=== PATIENT | female | born 1980 | race Caucasian/White ===

== ENCOUNTER 2016-08-15 04:30 | Emergency (ER) | payer SELFPAY ==
[~2016-08-15 04:30] MED LIST: FERR27TA PO; PREN1TAB49 PO
== END 2016-08-15 04:53 | disposition left against medical advice (07) ==
LOC: FTE 04:30 → E/R 04:53
DX: Z53.21 Procedure and treatment not carried out due to patient leaving prior to being seen by health care provider (principal)

== ENCOUNTER 2016-08-15 04:53 | Outpatient (CLI) | payer MEDICAID ==
[~2016-08-15] VITALS: Ht 152.4 cm; Wt 72.2 kg
[2016-08-15 05:10] VITALS: Ht 152.4 cm; Wt 72.2 kg
[2016-08-15 05:13] VITALS: BP 121/74; PULSE 94; RESP 16
--- NOTE | 2016-08-15 06:22 | CONS ---
Date/Time of Note Date/Time of Note DATE: 08/15/16 TIME: 06:20 Assessment/Plan Assessment/Plan Additional Assessment/Plan URI with cough. Discussed OTC meds to take. Discharge home. F/u with OB. Consultation Date/Type/Reason Admit Date/Time Hx of Present Illness 35 y/o at 34.6 weeks with cough and pain in upper abdomen. Pain is exacerbated by cough. Denies f/c/n/v. Has not tried OTC meds for cough. Denies LOF, VB, UCs, cramping, dysuria. +FM. Getting PNC, no complications. Past Medical History Medical History: no pertinent history Past Surgical History Past Surgical Hx: no surgical history Social History Smoking Status: Never smoker Other Social History Denies habits. Exam/Review of Systems Vital Signs Vitals Vital Signs Date Time Temp Pulse Resp B/P Pulse Ox O2 Delivery O2 Flow Rate FiO2 08/15/16 05:13 97.8 94 16 121/74 Exam Gen: NAD HEENT: NCAT CV: RRR Pulm: CTAB Abd: gravid, NT Back: no CVAT Ext: NT FHT: reactive [place]: no UCs SIDRA BLUNT Aug 15, 2016 06:22
--- NOTE | 2016-08-15 06:32 | TRIAGE ---
OB Triage Datetime Report Generated by CPN: 08/15/2016 06:32 Datetime: 08/15/2016 06:08 Labor Evaluation Frequency: NONE Pattern: Normal: <= 5 Contractions in 10 Minutes Resting Tone Peak: Relaxed Interventions: Side to Side Heart Rate FHR Baseline Rate: 140 Monitor Mode: External US FHR Baseline Changes: No Baseline Change Variability: Moderate 6-25 bpm Accelerations: 15X15 Decelerations: None Category: Category I Datetime: 08/15/2016 05:39 Vaginal Exam Membrane Status: Intact Datetime: 08/15/2016 05:38 Labor Evaluation Frequency: NONE Monitor Mode: External Pattern: Normal: <= 5 Contractions in 10 Minutes Resting Tone Peak: Relaxed Heart Rate FHR Baseline Rate: 145 Monitor Mode: External US FHR Baseline Changes: No Baseline Change Variability: Moderate 6-25 bpm Accelerations: 15X15 Decelerations: None Category: Category I Datetime: 08/15/2016 05:06 Stage of : OB Triage Assessment Type: Triage Maternal Assessment Level of Consciousness: Fully Conscious DTR's/Clonus: DTRs 2+; No Clonus Headache: Denies Blurred Vision: No Respiratory Effort: Unlabored; Regular Rhythm; Equal Expansion Breath Sounds, Left: Clear and Equal Breath Sounds, Right: Clear and Equal Nausea/Vomiting: Denies RUQ Epigastric Pain: Denies Facial Edema: None Temperature Route: Axillary Fall Risk Assessment History of Falling: (0) No Secondary Diagnosis: (0) No Ambulatory Aid: (0) Bedrest/Nurse Assist IV Therapy: (0) No Gait: (0) Normal/Bedrest/Immobile Mental Status: (0) Oriented to Own Ability Fall Score: 0 Fall Risk Score Definition: No Risk: No action required Datetime: 08/15/2016 05:05 Time of Arrival: 08/15/2016 04:48 EGA: 34.6 Arrived By: Ambulatory Arrived From: Home Chief Complaint: COUGH Movement: Present Contractions: Denies/Absent Rupture of Membranes: Denies Vaginal Bleeding: None Vaginal Discharge: Denies Recent Sexual Intercouse: Denies Abdominal Trauma: Not Applicable Patient Complaints: None Time Provider Notified: 08/15/2016 05:55 Provider Notified: YES Initial Plan: EFM. Datetime: 08/15/2016 05:01 Labor Evaluation Frequency: NONE Pattern: Normal: <= 5 Contractions in 10 Minutes Resting Tone Peak: Relaxed Heart Rate FHR Baseline Rate: 145 Monitor Mode: External US
== END 2016-08-15 06:23 | disposition home or self-care (01) ==
LOC: OBT 04:53 → L-D 04:54 → OBT 06:23
PROVIDERS: ATTEND Obstetrics & Gynecology
DX: O26.893 Other specified pregnancy related conditions, third trimester (principal); O09.523 Supervision of elderly multigravida, third trimester; J06.9 Acute upper respiratory infection, unspecified; R05 Cough; Z3A.34 34 weeks gestation of pregnancy

== ENCOUNTER 2016-09-13 14:58 | Inpatient (IN) | payer MEDICAID ==
[~2016-09-13] VITALS: Ht 152.4 cm; Wt 73.5 kg
[2016-09-13] MEDS: LACTATED RINGER'S 1,000 ML IV SCH ×3 (15:24→21:35)
[2016-09-13] MEDS ORDERED: OXYTOCIN 30 UNITS/LR 500 ML IV SCH (15:30)
[2016-09-13] MEDS ORDERED: MISOPROSTOL 200 MCG TAB PR PRN ×2 (15:30→22:00)
[2016-09-13] MEDS ORDERED: CARBOPROST 250 MCG INJ IM PRN ×2 (15:30→22:00)
[2016-09-13] MEDS ORDERED: CEFAZOLIN 2 GM/50 ML (PMX) 50 ML IV SCH (15:30)
[2016-09-13] MEDS ORDERED: OXYTOCIN 30 UNITS/LR 500 ML IV PRN ×2 (15:30→22:00)
[2016-09-13] MEDS ORDERED: METHYLERGONOVINE 0.2 MG INJ IM PRN ×2 (15:30→22:00)
[2016-09-13 15:41] LABS: ADD SCAN DIFF NO
[2016-09-13 16:03] LABS: INR 0.97; PROTIME 12.9 Sec (12.2-14.2)
[2016-09-13 16:04] LABS: PARTIAL THROMBOPLASTIN TIME 27.5 Sec (25.0-35.0)
[2016-09-13 16:48] VITALS: BP 117/71; PULSE 92
[2016-09-13 17:06] LABS: BASOPHILS % 0.1 % (0.0-2.0); EOSINOPHILS % 0.3 % (0.0-7.0); HEMATOCRIT 33.9 % (37.0-47.0); HEMOGLOBIN 11.6 g/dl (12.0-16.0); LYMPHOCYTES # 1.6 10^3/ul (0.8-2.9); LYMPHOCYTES % 17.4 % (15.0-51.0); MEAN CORPUSCULAR HGB CONC 34.2 g/dl (32.0-37.0); MEAN CORPUSCULAR VOLUME 90.6 fl (82.0-101.0); MEAN PLATELET VOLUME 11.1 fl (7.4-10.4); MONOCYTE # 0.6 10^3/ul (0.3-0.9); MONOCYTES % 6.7 % (0.0-11.0); NEUTROPHIL # 6.8 10^3/ul (1.6-7.5); NEUTROPHILS % 75.2 % (39.0-77.0); PLATELET COUNT 238 10^3/UL (140-415); RED BLOOD COUNT 3.74 10^6/ul (4.20-5.40); RED CELL DISTRIBUTION WIDTH 14.3 % (11.5-14.5); WHITE BLOOD COUNT 9.1 10^3/ul (4.8-10.8)
[2016-09-13] MEDS ORDERED: FAMOTIDINE 20 MG INJ ONE (17:09)
[2016-09-13] MEDS ORDERED: CITRIC ACID/NA CITRATE 30 ML CUP ONE (17:09)
[2016-09-13] MEDS ORDERED: METOCLOPRAMIDE 10 MG INJ ONE (17:09)
[2016-09-13] MEDS ORDERED: LACTATED RINGER'S 1,000 ML IV ONE (17:40)
--- NOTE | 2016-09-13 17:59 | PREOPHP ---
DATE OF ADMISSION: 09/13/2016 HISTORY OF PRESENT ILLNESS: A 35-year-old female 3, para 1-0-1-1, estimated date of deliver y 09/20/2016 at 39 weeks' gestation. Admitted for repeat section. PAST MEDICAL HISTORY: Unremarkable. PAST SURGICAL HISTORY: section and breast biopsy. ALLERGIES: NO KNOWN ALLERGIES. FAMILY HISTORY: Noncontributory. PHYSICAL EXAMINATION: VITAL SIGNS: The patient is afebrile. Vital signs stable. HEAD, NECK AND CHEST: Within normal limits. ABDOMEN: Soft, nontender and gravid. EXTREMITIES: Within normal limits. NEUROLOGIC: Within normal limits. IMPRESSION: at 39 weeks with previous section. The patient does not desire tria l of labor after . PLAN: Delivery by repeat section. Risks, benefits and alternatives of the procedure were explained to the patient. The patient said she understood and gave informed consent for the procedu re. Dictated By: SOL SLAUGHTER/MAUREEN Conf#: [id number] DID#: [id number]
[2016-09-13] MEDS ORDERED: CITRIC ACID/NA CITRATE 30 ML CUP PO ONE (18:00)
[2016-09-13] MEDS ORDERED: METOCLOPRAMIDE 10 MG INJ IV ONE (18:00)
[2016-09-13] MEDS ORDERED: FAMOTIDINE 20 MG INJ IV ONE (18:00)
[2016-09-13] MEDS ORDERED: FENTAnyl 50 MCG/ML VIAL ONE (18:07)
[2016-09-13] MEDS ORDERED: morphine SULFATE/PF (10 MG/10 ML) INJ ONE (18:07)
[2016-09-13] MEDS ORDERED: ONDANSETRON 4 MG INJ ONE (18:20)
[2016-09-13] MEDS ORDERED: PHENYLephrine (100 MCG/ML) 5ML SYG ONE ×2 (18:27→18:57)
[2016-09-13] MEDS ORDERED: OXYTOCIN 30 UNITS/LR 500 ML IV ONE (18:45)
[2016-09-13] MEDS ORDERED: DIPHENHYDRAMINE 50 MG INJ IV PRN ×2 (19:00)
[2016-09-13] MEDS ORDERED: KETOROLAC 30 MG INJ IV PRN ×2 (19:00)
[2016-09-13] MEDS ORDERED: ONDANSETRON 4 MG INJ IV PRN ×2 (19:00)
[2016-09-13] MEDS ORDERED: PROCHLORPERAZINE 10 MG INJ IV PRN ×2 (19:00)
[2016-09-13] MEDS ORDERED: HYDROmorphONE (0.2 MG/ML) 10ML SYG IV PRN (19:00)
[2016-09-13] MEDS ORDERED: FENTAnyl 50 MCG/ML VIAL IV PRN (19:00)
[2016-09-13] MEDS ORDERED: HYDROmorphONE 1 MG/ML SYG IV PRN ×2 (19:00)
[2016-09-13] MEDS ORDERED: NALOXONE (0.4 MG/ML) INJ IV PRN (19:00)
[2016-09-13] MEDS ORDERED: MEPERIDINE 25 MG INJ IV PRN (19:00)
[2016-09-13] MEDS ORDERED: ZOLPIDEM 5 MG TAB PO PRN (19:00)
--- NOTE | 2016-09-13 21:13 | OPR ---
DATE OF OPERATION: 09/13/2016 PREOPERATIVE DIAGNOSES: at term with previous section. POSTOPERATIVE DIAGNOSES: at term with previous section. OPERATION PERFORMED: Repeat low transverse section. SURGEON: Sol Bush MD EXT JS DEVELOPER: Low Booker MD ANESTHESIA: Spinal. ANESTHESIOLOGIST: Dr. Spivey. PROCEDURE: The patient was taken to operating room and placed on the operating table. After succes sful spinal anesthesia was given, the patient was placed in supine position. The area was prepared and draped in the usual sterile fashion. Spinal anesthesia was tested and was satisfactory. Using a scalpel, Pfannenstiel incision was made about 2 fingerbreadths above the symphysis pubis. The inc ision was carried down to the fascia. The fascia was incised and extended bilaterally with Xiao sci ssors. Two Kochers were used to separate the fascia from the muscle. Muscle was dissected down to peritoneum. The peritoneum was secured with Kellys and incised with Metzenbaum scissors. Using a s calpel, a small transverse incision was made in the lower segment of the uterus. Upon entering the uterine cavity, bandage scissors were inserted to extend the incision bilaterally, curved up. Baby was delivered from cephalic presentation. After suctioning clear of amniotic fluid, the baby was stark nded off to the team in attendance. Apgars were 8 and 9. Placenta was delivered without d ifficulty. Uterus was closed with #1 Monocryl continuous locked. After assuring hemostasis, both o varies and tubes were inspected, all looked normal. The peritoneal cavity was irrigated with warm s reuben. Peritoneum was closed with 2-0 Vicryl continuous. The fascia was closed with #1 Vicryl cont inuous in 2 segments. The skin was closed with elli. ESTIMATED BLOOD LOSS: 700 mL. COMPLICATIONS: None. COUNTS: All counts were correct. Dictated By: SOL BUSH MD GD/NTS Conf#: [id number] DID#: [id number]
[2016-09-13 21:30] VITALS: BP_SYST 110; BP_SYST 120; BP_DIAS 62; BP_DIAS 65; PULSE 65; PULSE 96; RESP 20
[2016-09-13 21:45] VITALS: BP 112/68; PULSE 98; RESP 19
[2016-09-13] MEDS ORDERED: LANOLIN 7 GM TUBE TOP PRN (22:00)
[2016-09-13] MEDS: IBUPROFEN 800 MG TAB PO SCH (22:00)
[2016-09-13] MEDS ORDERED: IBUPROFEN 800 MG TAB PO SCH (22:00)
[2016-09-13] MEDS ORDERED: OXYCODONE/ACETAMINOPHEN (5/325) TAB PO PRN ×2 (22:00)
[2016-09-13] MEDS: OXYTOCIN 30 UNITS/LR 500 ML IV SCH (22:00)
[2016-09-13] MEDS: SENNA/DOCUSATE NA (8.6MG/50MG) TAB PO SCH (22:00)
[2016-09-14] VITALS (14 sets, daily range): BP systolic 97–111; BP diastolic 52–66; PULSE 89–110; RESP 14–19
[2016-09-14] MEDS: OXYTOCIN 30 UNITS/LR 500 ML IV SCH (02:24)
[2016-09-14] MEDS: IBUPROFEN 800 MG TAB PO SCH ×3 (06:00→21:55)
[2016-09-14] MEDS: LACTATED RINGER'S 1,000 ML IV SCH ×3 (06:22→21:35)
[2016-09-14 08:56] LABS: ADD SCAN DIFF NO
[2016-09-14 08:59] LABS: ABNORMAL IP MESSAGE 1; BASOPHILS % 0.1 % (0.0-2.0); EOSINOPHILS % 0.1 % (0.0-7.0); HEMATOCRIT 18.1 % (37.0-47.0); LYMPHOCYTES # 1.8 10^3/ul (0.8-2.9); LYMPHOCYTES % 15.2 % (15.0-51.0); MEAN CORPUSCULAR HEMOGLOBIN 29.8 pg (29.0-33.0); MEAN CORPUSCULAR HGB CONC 32.6 g/dl (32.0-37.0); MEAN CORPUSCULAR VOLUME 91.4 fl (82.0-101.0); MEAN PLATELET VOLUME 10.7 fl (7.4-10.4); MONOCYTES % 8.6 % (0.0-11.0); NEUTROPHIL # 9.1 10^3/ul (1.6-7.5); NEUTROPHILS % 75.7 % (39.0-77.0); PLATELET COUNT 182 10^3/UL (140-415); RED BLOOD COUNT 1.98 10^6/ul (4.20-5.40); RED CELL DISTRIBUTION WIDTH 14.5 % (11.5-14.5)
[2016-09-14 09:28] LABS: HEMOGLOBIN 5.9 g/dl (12.0-16.0)
[2016-09-14] MEDS: SENNA/DOCUSATE NA (8.6MG/50MG) TAB PO SCH ×2 (10:05→20:01)
[2016-09-14 12:24] LABS: ADD SCAN DIFF NO
[2016-09-14] MEDS: FERROUS SULFATE (EC) 325 MG TAB PO SCH ×2 (12:26→20:02)
[2016-09-14 12:31] LABS: ABNORMAL IP MESSAGE 1; EOSINOPHILS % 0.2 % (0.0-7.0); HEMATOCRIT 16.6 % (37.0-47.0); LYMPHOCYTES # 1.5 10^3/ul (0.8-2.9); LYMPHOCYTES % 14.9 % (15.0-51.0); MEAN CORPUSCULAR HEMOGLOBIN 29.5 pg (29.0-33.0); MEAN CORPUSCULAR HGB CONC 32.5 g/dl (32.0-37.0); MEAN CORPUSCULAR VOLUME 90.7 fl (82.0-101.0); MEAN PLATELET VOLUME 10.5 fl (7.4-10.4); MONOCYTE # 0.9 10^3/ul (0.3-0.9); MONOCYTES % 9.1 % (0.0-11.0); NEUTROPHIL # 7.7 10^3/ul (1.6-7.5); NEUTROPHILS % 75.4 % (39.0-77.0); PLATELET COUNT 165 10^3/UL (140-415); RED BLOOD COUNT 1.83 10^6/ul (4.20-5.40); RED CELL DISTRIBUTION WIDTH 14.6 % (11.5-14.5); WHITE BLOOD COUNT 10.2 10^3/ul (4.8-10.8)
[2016-09-14 12:49] LABS: HEMOGLOBIN 5.4 g/dl (12.0-16.0)
--- NOTE | 2016-09-14 20:35 | QN ---
Documentation Comment No complaint Afebrile VSS Abdomen soft ND Hgb 5.8 Repeat Hgb 5.4 POD #1 Anemia Patient counseled about the option of receiving RBC transfusion. Risks, benefits and alternatives were explained to the patient who stated she understood and gave informed consent for blood transfusion. Transfuse 2 units RBC. SOL COMER MD September 14, 2016 20:35
[2016-09-15 04:20] VITALS: BP 91/50; PULSE 82; RESP 17
[2016-09-15] MEDS: IBUPROFEN 800 MG TAB PO SCH ×3 (05:13→21:57)
[2016-09-15] MEDS: LACTATED RINGER'S 1,000 ML IV SCH (05:35)
[2016-09-15 08:30] VITALS: BP 99/54; PULSE 79; RESP 18
[2016-09-15] MEDS: SENNA/DOCUSATE NA (8.6MG/50MG) TAB PO SCH ×2 (08:46→20:37)
[2016-09-15] MEDS: FERROUS SULFATE (EC) 325 MG TAB PO SCH ×3 (08:46→20:38)
[2016-09-15 09:01] LABS: ADD SCAN DIFF NO
[2016-09-15 09:05] LABS: BASOPHILS % 0.1 % (0.0-2.0); EOSINOPHILS # 0.1 10^3/ul (0.0-0.5); EOSINOPHILS % 0.5 % (0.0-7.0); HEMATOCRIT 23.8 % (37.0-47.0); HEMOGLOBIN 7.9 g/dl (12.0-16.0); LYMPHOCYTES # 1.6 10^3/ul (0.8-2.9); LYMPHOCYTES % 13.2 % (15.0-51.0); MEAN CORPUSCULAR HEMOGLOBIN 29.9 pg (29.0-33.0); MEAN CORPUSCULAR HGB CONC 33.2 g/dl (32.0-37.0); MEAN CORPUSCULAR VOLUME 90.2 fl (82.0-101.0); MEAN PLATELET VOLUME 10.5 fl (7.4-10.4); MONOCYTE # 1.1 10^3/ul (0.3-0.9); MONOCYTES % 9.1 % (0.0-11.0); NEUTROPHILS % 76.7 % (39.0-77.0); PLATELET COUNT 178 10^3/UL (140-415); RED BLOOD COUNT 2.64 10^6/ul (4.20-5.40); WHITE BLOOD COUNT 11.8 10^3/ul (4.8-10.8)
--- NOTE | 2016-09-15 12:22 | QN ---
Documentation Comment No complaint Afebrile VSS Abdomen soft Hgb 7.9 POD #2 Stable Ambulate Advance diet Fe supplement. SOL COMER MD September 15, 2016 12:22
[2016-09-15 20:00] VITALS: BP 102/59; PULSE 100; RESP 18
[2016-09-16] VITALS: BP 99/52; PULSE 90; RESP 18
[2016-09-16 04:15] VITALS: BP 96/52; PULSE 79; RESP 18
[2016-09-16] MEDS: IBUPROFEN 800 MG TAB PO SCH ×2 (06:10→13:27)
[2016-09-16 08:56] VITALS: BP 100/53; PULSE 90; RESP 14
[2016-09-16] MEDS ORDERED: DIPHTH/TET/ACEL PERTUSS (ADULT) 0.5 ML VIAL IM* ONE (09:00)
[2016-09-16] MEDS: SENNA/DOCUSATE NA (8.6MG/50MG) TAB PO SCH (09:12)
[2016-09-16] MEDS: FERROUS SULFATE (EC) 325 MG TAB PO SCH ×2 (09:12→13:27)
[2016-09-16 16:45] VITALS: BP 100/53; PULSE 90; RESP 14
--- NOTE | 2016-09-17 02:51 | DS ---
DATE OF ADMISSION: 09/13/2016 DATE OF DISCHARGE: 09/16/2016 ADMITTING DIAGNOSIS: at term with previous section. HISTORY: A 35-year-old female, 3, para 1-0-1-1 at admission, para 2-0-1-2 at time of discha e, with term was admitted for repeat section. On 09/13/2016 after obtaining in formed consent, the patient underwent a repeat low transverse section. Patient's operation was uncomplicated. Postoperatively, the patient was given clear liquid diet, which was advanced to regular diet, which she tolerated well. During the period, the patient's hemoglobin was noted to have dropped to 5.4. After obtaining informed consent, the patient was transfused 2 units of packed red cells. The patient's hemoglobin improved after that. The patient has been hemodynam ically stable and asymptomatic during the . The patient is discharged on postop day #3 after having had adequate bladder and bowel function. CONDITION ON DISCHARGE: Stable. DISCHARGE INSTRUCTIONS DIET: Regular. ACTIVITIES: Pelvic rest and no strenuous activities. MEDICATIONS: 1. Ferrous sulfate 325 mg p.o. 3 times a day. 2. Continue with vitamins, Motrin as needed for pain. FOLLOWUP: Follow up in clinic in 1 week. FINAL DIAGNOSES: 1. Term , delivered by section. 2. Previous section. 3. Anemia associated with acute blood loss. 4. Mother with single liveborn. Dictated By: SOL SLAUGHTER/MAUREEN Conf#: [id number] DID#: [id number]
== END 2016-09-16 19:00 | disposition home or self-care (01) | DRG 766 ==
LOC: L-D 14:58 → PP1 21:24
PROVIDERS: ADMIT Obstetrics & Gynecology; ATTEND Obstetrics & Gynecology
PROC: 10D00Z1 Extraction of Products of Conception, Low, Open Approach (ICD-10-PCS; principal; 2016-09-13 17:00)
PROC: 30233N1 Transfusion of Nonautologous Red Blood Cells into Peripheral Vein, Percutaneous Approach (ICD-10-PCS; 2016-09-14)
DX: O34.211 Maternal care for low transverse scar from previous cesarean delivery (principal); O90.81 Anemia of the puerperium; D64.9 Anemia, unspecified; Z37.0 Single live birth; Z3A.38 38 weeks gestation of pregnancy
CPT/HCPCS: 36430; 85025; 85610; 85730; 86592; 86850; 86900; 86901; 86920; 87340; 90715; 94760; 99464; J0690; J1885; J2274; J2370; J2405; J2590; J2765; J3010; J7120; P9016